=== PATIENT | male | born 1995 | race Caucasian/White ===

== ENCOUNTER 2020-07-18 14:43 | Outpatient (CLI) | payer BC, SELFPAY ==
[2020-07-19 17:19] LABS: SARS-CoV-2 RNA PCR Positive
== END 2020-07-18 14:44 | disposition home or self-care (01) ==
PROVIDERS: PCP Internal Medicine; Visit Provider Internal Medicine
DX: U07.1 COVID-19 (principal)
CPT/HCPCS: 87635; C9803; U0003

== ENCOUNTER 2021-08-08 13:40 | Outpatient (CLI) | payer BC, SELFPAY ==
[2021-08-08 15:04] LABS: Influenza Control Valid (Valid); SARS-CoV-2 Ag Negative (Negative)
== END 2021-08-08 13:41 | disposition home or self-care (01) ==
LOC: CHSLAB 13:42
PROVIDERS: PCP Internal Medicine; Visit Provider Internal Medicine
DX: J06.9 Acute upper respiratory infection, unspecified (principal); Z20.822 Contact with and (suspected) exposure to COVID-19
CPT/HCPCS: 87081; 87426; 87804; 87880; C9803